=== PATIENT | male | born 1960 | race Native Hawaiian/Other Pacific Islander ===

== ENCOUNTER 2021-08-16 10:00 | Emergency (ER) | payer OTHER ==
[2021-08-16 10:16] VITALS: RESP 16; TEMP 98.6
[2021-08-16] MEDS ORDERED: KETOROLAC 15 MG/ML 1 ML VIAL IM STA (10:36)
--- NOTE | 2021-08-16 10:49 | ED ---
Lower Extremity Injury HPI - General Chief Complaint: Extremity Injury, Lower Stated Complaint: Knee pain Time Seen by Provider: 08/16/21 10:20 Source: patient, RN notes reviewed Mode of arrival: wheelchair Limitations: physical limitation - History of Present Illness Initial Comments: Patient is a 61-year-old male that presents to emergency department complaining of chronic right knee pain that has gotten slowly worse over the past several weeks. He notes that he does have arthritis in his left knee. 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 He notes that his right knee is now starting to feel like his left knee. He denied any injury or trauma. He was otherwise a well-appearing 61-year-old male. He denied any real alleviating factors noting that at home medications only help mildly. He notes aggravating factors are walking and climbing stairs ladders and scaffolding. He denied any chest pain shortness of breath headache nausea vomiting diarrhea constipation fever fatigue chills weakness numbness tingling. - Related Data Allergies Allergy/AdvReac Type Severity Reaction Status Date / Time No Known Allergies Allergy Verified 08/16/21 10:16 Review of Systems ROS Statement: Those systems with pertinent positive or pertinent negative responses have been documented in the HPI. ROS Other: All systems not noted in ROS Statement are negative. Past Medical History Past Medical History: Coronary Artery Disease (CAD), Diabetes Mellitus Additional Past Medical History / Comment(s): poor historian History of Any Multi-Drug Resistant Organisms: None Reported Past Surgical History: No Surgical Hx Reported Past Psychological History: No Psychological Hx Reported Smoking Status: Never smoker Past Alcohol Use History: None Reported Past Drug Use History: None Reported General Exam Limitations: physical limitation General appearance: alert, in no apparent distress Head exam: Present: atraumatic, normocephalic, normal inspection Eye exam: Present: normal appearance, PERRL, EOMI. Absent: scleral icterus, conjunctival injection, periorbital swelling ENT exam: Present: normal exam, mucous membranes moist Neck exam: Present: normal inspection Respiratory exam: Present: normal lung sounds bilaterally. Absent: respiratory distress, wheezes, rales, rhonchi, stridor Cardiovascular Exam: Present: regular rate, normal rhythm, normal heart sounds. Absent: systolic murmur, diastolic murmur, rubs, gallop, clicks GI/Abdominal exam: Present: soft, normal bowel sounds. Absent: distended, tenderness, guarding, rebound, rigid Extremities exam: Present: normal inspection, full ROM, normal capillary refill, other (No right knee tenderness effusion swelling joint laxity.). Absent: t enderness, pedal edema, joint swelling, calf tenderness Neurological exam: Present: alert, oriented X3 Psychiatric exam: Present: normal affect, normal mood Skin exam: Present: warm, dry, intact, normal color. Absent: rash Course Vital Signs 08/16/21 10:12 Temperature 98.6 F Pulse Rate 65 Respiratory 16 Rate Blood Pressure 156/80 O2 Sat by Pulse 98 Oximetry Medical Decision Making - Medical Decision Making 61-year-old male complaining of chronic slightly worsening right knee pain. Upon exam there was no effusion or erythema tenderness or laxity with the for test or valgus varus stress test. Patient was informed that he is probably experiencing worsening arthritis of the right knee. 15 mg of Toradol ordered. Patient is very will discharge home with follow-up to primary care for m anagement. Case discussed with Dr. Flor, patient can discharge home in stable condition. Disposition Clinical Impression: Arthritis of right knee, Knee pain, right Disposition: HOME SELF-CARE Condition: Stable Instructions (If sedation given, give patient instructions): Knee Pain (ED) Additional Instructions: Please return to the Emergency Department if symptoms worsen or any other concerns. Follow-up with primary care 1-2 days. Discuss possible arthritis medications. Rest ice compress elevate. Work note given. Is patient prescribed a controlled substance at d/c from ED?: No Referrals: None,Stated [Primary Care Provider] - 1-2 days Time of Disposition: 10:48
[2021-08-16 11:07] VITALS: BP 147/76; PULSE 72
== END 2021-08-16 11:05 | disposition home or self-care (01) ==
LOC: EC 10:00
DX: M17.11 Unilateral primary osteoarthritis, right knee (principal); E11.9 Type 2 diabetes mellitus without complications; I25.10 Atherosclerotic heart disease of native coronary artery without angina pectoris
CPT/HCPCS: 99283; 96372; J1885